=== PATIENT | male | born 1975 | race Caucasian/White ===

== ENCOUNTER 2021-12-16 16:58 | Inpatient (IN) ==
[2021-12-16] MEDS ORDERED: Acetaminophen 325 MG TABLET PO PRN (17:43)
[2021-12-16] MEDS ORDERED: Ondansetron 4 MG/2 ML VIAL IVP PRN (17:43)
[2021-12-16] MEDS ORDERED: Naloxone 0.4 MG/ML INJ IVP PRN (17:43)
[2021-12-16] MEDS ORDERED: *HR* Heparin 5,000 UNIT/ML VIAL IVP PRN (17:51)
[2021-12-16] MEDS ORDERED: *HR* Heparin 5,000 UNIT/ML VIAL IVP ONE (17:51)
[2021-12-16] MEDS ORDERED: Vancomycin 1,500 MG/265 ML IV.SOLN IVPB ONE (18:00)
[2021-12-16] MEDS: *HR* HYDROcodone/Acet 5/325 mg TABLET PO PRN (18:20)
[2021-12-16] MEDS: Nicotine 14 MG PATCH.TD24 TD SCH (18:24)
[2021-12-16 18:28] LABS: Basophils # 0.1 K/mcL (0.0-0.2); Basophils % 0.5 %; Eosinophils # 0.2 K/mcL (0.0-0.6); Eosinophils % 1.6 %; Hematocrit 38.5 % (37.5-50.1); Hemoglobin 12.8 g/dL (12.9-16.9); Immature Granulocytes % 0.4 % (0-4); Lymphocytes % 15.8 %; Mean Corpuscular HGB Conc 33.2 g/dL (31.6-35.5); Mean Corpuscular Hemoglobin 29.6 pg (28.0-33.3); Mean Corpuscular Volume 89.1 fL (83.0-100.0); Mean Platelet Volume 9.2 fL (9.4-12.4); Monocytes % 7.5 %; Neutrophils # 9.5 K/mcL (1.6-8.9); Platelet Count 386 K/mcL (140-400); Red Blood Count 4.32 M/mcL (4.19-5.50); Red Cell Distribution Width 13.5 % (11.5-14.5); Segmented Neutrophils % 74.2 %; White Blood Count 12.8 K/mcL (4.3-11.1)
[2021-12-16 18:38] LABS: INR 1.4; Prothrombin Time 15.9 Seconds (9.4-12.1)
[2021-12-16 18:41] LABS: Activated Partial Thrombo Time 40.2 Seconds (26.0-36.0)
[2021-12-16 18:47] LABS: BUN/Creatinine Ratio 7 (6-26); Blood Urea Nitrogen 5 mg/dL (6-20); Calcium 9.2 mg/dL (8.6-10.3); Carbon Dioxide 28 mEq/L (23-29); Chloride 99 mEq/L (98-107); Glucose 97 mg/dL (70-105); Osmolality,Calculated 275 (280-300); Potassium 3.4 mEq/L (3.5-5.1); Sodium 134 mEq/L (136-145); eGFR For African Americans > 60 (> 60); eGFR For Non-African Americans > 60 (> 60)
[2021-12-16] MEDS: *HR* OxyCODONE Immed Rel 5 MG TABLET PO PRN (19:40)
[2021-12-16] MEDS: Heparin 25,000UNIT/250ML 1/2NS 25,000 UNIT/250 ML IV.SOLN IVC SCH (19:41)
[2021-12-16] MEDS ORDERED: *HR* HYDROmorphone (PF) 1 MG/ML SYRINGE IVP ONE (23:19)
[2021-12-16] MEDS ORDERED: 0.9 % Sodium Chloride 500 ML IVC ONE (23:37)
[2021-12-16] MEDS: Gabapentin 400 MG CAPSULE PO SCH (23:42)
[2021-12-17] MEDS: *HR* HYDROcodone/Acet 5/325 mg TABLET PO PRN ×5 (01:14→21:12)
[2021-12-17 02:06] LABS: Basophils # 0.1 K/mcL (0.0-0.2); Basophils % 0.6 %; Eosinophils # 0.2 K/mcL (0.0-0.6); Eosinophils % 2.1 %; Hematocrit 36.9 % (37.5-50.1); Hemoglobin 11.9 g/dL (12.9-16.9); Immature Granulocytes % 0.5 % (0-4); Lymphocytes % 26.6 %; Mean Corpuscular HGB Conc 32.2 g/dL (31.6-35.5); Mean Corpuscular Hemoglobin 29.2 pg (28.0-33.3); Mean Corpuscular Volume 90.4 fL (83.0-100.0); Mean Platelet Volume 9.3 fL (9.4-12.4); Monocytes % 8.9 %; Neutrophils # 6.8 K/mcL (1.6-8.9); Platelet Count 369 K/mcL (140-400); Red Blood Count 4.08 M/mcL (4.19-5.50); Red Cell Distribution Width 13.7 % (11.5-14.5); Segmented Neutrophils % 61.3 %; White Blood Count 11.1 K/mcL (4.3-11.1)
[2021-12-17 02:25] LABS: BUN/Creatinine Ratio 11 (6-26); Blood Urea Nitrogen 10 mg/dL (6-20); Calcium 8.4 mg/dL (8.6-10.3); Carbon Dioxide 27 mEq/L (23-29); Chloride 101 mEq/L (98-107); Chol/HDL Ratio 5.7 (0-4.9); Cholesterol 125 mg/dL (< 200); Glucose 99 mg/dL (70-105); HDL Cholesterol 22 mg/dL (40-59); LDL Cholesterol,Calculated 61 mg/dL (< 100); Magnesium 1.7 mg/dL (1.6-2.6); Osmolality,Calculated 283 (280-300); Potassium 3.2 mEq/L (3.5-5.1); Sodium 137 mEq/L (136-145); Triglycerides 210 mg/dL (< 150); eGFR For African Americans > 60 (> 60); eGFR For Non-African Americans > 60 (> 60)
[2021-12-17] MEDS: *HR* OxyCODONE Immed Rel 5 MG TABLET PO PRN (03:35)
[2021-12-17] MEDS: *HR* Heparin 5,000 UNIT/ML VIAL IVP PRN ×2 (03:36→10:19)
[2021-12-17] MEDS: Vancomycin 1,500 MG/265 ML IV.SOLN IVPB SCH ×2 (05:28→19:33)
[2021-12-17] MEDS: Aspirin 81 MG TAB.CHEW PO SCH (08:12)
[2021-12-17] MEDS: Nicotine 14 MG PATCH.TD24 TD SCH (08:12)
[2021-12-17] MEDS: Gabapentin 400 MG CAPSULE PO SCH ×3 (08:12→19:32)
[2021-12-17] MEDS: Heparin 25,000UNIT/250ML 1/2NS 25,000 UNIT/250 ML IV.SOLN IVC SCH (14:03)
[2021-12-17] MEDS: Piperacillin/Tazobactam 3.375 GM in 0.9 % Sodium Chloride Mini Bag 100 ML IVPB SCH (19:34)
[2021-12-18] MEDS: Piperacillin/Tazobactam 3.375 GM in 0.9 % Sodium Chloride Mini Bag 100 ML IVPB SCH ×3 (01:14→16:50)
[2021-12-18] MEDS: *HR* HYDROcodone/Acet 5/325 mg TABLET PO PRN ×3 (01:14→08:51)
[2021-12-18] MEDS: Vancomycin 1,500 MG/265 ML IV.SOLN IVPB SCH (05:39)
[2021-12-18] MEDS: Heparin 25,000UNIT/250ML 1/2NS 25,000 UNIT/250 ML IV.SOLN IVC SCH (06:31)
[2021-12-18 07:04] LABS: Basophils # 0.1 K/mcL (0.0-0.2); Basophils % 0.7 %; Eosinophils # 0.2 K/mcL (0.0-0.6); Eosinophils % 1.9 %; Hematocrit 36.9 % (37.5-50.1); Hemoglobin 11.8 g/dL (12.9-16.9); Immature Granulocytes % 0.5 % (0-4); Lymphocytes # 2.2 K/mcL (0.6-4.6); Lymphocytes % 21.7 %; Mean Corpuscular Volume 90.7 fL (83.0-100.0); Mean Platelet Volume 9.5 fL (9.4-12.4); Monocytes # 0.9 K/mcL (0.0-1.3); Monocytes % 8.7 %; Neutrophils # 6.8 K/mcL (1.6-8.9); Platelet Count 357 K/mcL (140-400); Red Blood Count 4.07 M/mcL (4.19-5.50); Red Cell Distribution Width 13.6 % (11.5-14.5); Segmented Neutrophils % 66.5 %; White Blood Count 10.3 K/mcL (4.3-11.1)
[2021-12-18 07:59] LABS: BUN/Creatinine Ratio 8 (6-26); Blood Urea Nitrogen 6 mg/dL (6-20); Carbon Dioxide 25 mEq/L (23-29); Chloride 103 mEq/L (98-107); Glucose 99 mg/dL (70-105); Magnesium 1.8 mg/dL (1.6-2.6); Osmolality,Calculated 284 (280-300); Phosphorous 2.9 mg/dL (2.7-4.5); Potassium 3.6 mEq/L (3.5-5.1); Sodium 138 mEq/L (136-145); eGFR For African Americans > 60 (> 60); eGFR For Non-African Americans > 60 (> 60)
[2021-12-18] MEDS: Gabapentin 400 MG CAPSULE PO SCH ×2 (08:51→22:05)
[2021-12-18] MEDS: Aspirin 81 MG TAB.CHEW PO SCH (08:51)
[2021-12-18] MEDS: lisinopriL 5 MG TABLET PO SCH (08:52)
[2021-12-18] MEDS: Nicotine 14 MG PATCH.TD24 TD SCH (08:53)
[2021-12-18] MEDS ORDERED: *HR* OxyCODONE Immed Rel 5 MG TABLET PO PRN (10:29)
[2021-12-18] MEDS ORDERED: haloperidoL 5 MG TABLET PO ONE (11:23)
[2021-12-18] MEDS: Vancomycin 1,250 MG/262.5 ML IV.SOLN IVPB SCH ×2 (13:14→22:19)
[2021-12-18] MEDS: *HR* OxyCODONE Immed Rel 5 MG TABLET PO PRN ×2 (13:15→18:22)
[2021-12-19] MEDS: Piperacillin/Tazobactam 3.375 GM in 0.9 % Sodium Chloride Mini Bag 100 ML IVPB SCH ×3 (03:11→17:42)
[2021-12-19] MEDS: Vancomycin 1,250 MG/262.5 ML IV.SOLN IVPB SCH ×2 (05:59→16:49)
[2021-12-19] MEDS: *HR* OxyCODONE Immed Rel 5 MG TABLET PO PRN ×2 (06:08→17:34)
[2021-12-19] MEDS: lisinopriL 5 MG TABLET PO SCH (09:13)
[2021-12-19] MEDS: Aspirin 81 MG TAB.CHEW PO SCH (09:13)
[2021-12-19] MEDS: Gabapentin 400 MG CAPSULE PO SCH ×2 (09:14→21:01)
[2021-12-19] MEDS: Nicotine 14 MG PATCH.TD24 TD SCH (09:18)
[2021-12-19] MEDS ORDERED: *HR* Propofol 200 MG/20 ML VIAL IVP ONE (10:13)
[2021-12-19] MEDS ORDERED: *HR* Midazolam HCl 2 MG/2 ML VIAL ONE (10:13)
[2021-12-19] MEDS ORDERED: *HR* FentaNYL (PF) 100 MCG/2 ML VIAL ONE (10:13)
[2021-12-19] MEDS ORDERED: Lidocaine -MPF 2% 5 ML VIAL ONE ×2 (10:16→14:57)
[2021-12-19] MEDS ORDERED: *HR* Rocuronium Bromide 50 MG/5 ML VIAL ONE ×2 (10:16→12:57)
[2021-12-19] MEDS ORDERED: Ondansetron 4 MG/2 ML VIAL ONE (10:16)
[2021-12-19] MEDS ORDERED: Lidocaine HCL 4 ML Topical Solution (Laryng-O-Jet Kit Sterile Pak) TP ONE (10:19)
[2021-12-19] MEDS ORDERED: Acetaminophen IV 1,000 MG/100 ML BAG IVPB ONE ×2 (11:12→11:15)
[2021-12-19] MEDS ORDERED: Famotidine 20 MG/2 ML VIAL IVP ONE ×2 (11:12→22:35)
[2021-12-19] MEDS ORDERED: Gabapentin 300 MG CAPSULE PO ONE ×2 (11:12→22:35)
[2021-12-19] MEDS ORDERED: ceFAZolin 1,000 MG, Sodium Chloride IRRigation 1,000 ML IR ONE (11:30)
[2021-12-19] MEDS ORDERED: Famotidine 20 MG/2 ML VIAL ONE (11:45)
[2021-12-19] MEDS ORDERED: *HR* HYDROMORPHONE 2 MG/ML VIAL ONE (12:33)
[2021-12-19] MEDS ORDERED: Ketamine HCL *QUVA* 50mg (1mL) SYRINGE ONE (12:33)
[2021-12-19] MEDS ORDERED: EPHEDrine 50 MG/ML VIAL ONE (13:35)
[2021-12-19] MEDS ORDERED: Ondansetron 4 MG/2 ML VIAL IVP PRN ×2 (14:31→22:35)
[2021-12-19] MEDS ORDERED: Ropivacaine/PF 0.5% 30 ML VIAL ONE (14:35)
[2021-12-19] MEDS ORDERED: Dexmedetomidine HCl 400 MCG/100 ML MLS IVC ONE (14:35)
[2021-12-19] MEDS ORDERED: Sugammadex Sodium 200 MG/2 ML VIAL IV ONE (14:42)
[2021-12-19] MEDS: *HR* HYDROmorphone PF 0.5 MG/0.5 ML SYRINGE IVP PRN ×2 (15:51→15:56)
[2021-12-19] MEDS ORDERED: *HR* Labetalol 100 MG/20 ML MDV ONE (16:07)
[2021-12-19] MEDS: *HR* Labetalol 20 MG/4 ML SYRINGE IVP PRN ×2 (16:08→16:13)
[2021-12-19] MEDS ORDERED: Vancomycin 1,250 MG/262.5 ML IV.SOLN IVPB SCH (19:00)
[2021-12-19] MEDS ORDERED: Heparin 25,000UNIT/250ML 1/2NS 25,000 UNIT/250 ML IV.SOLN IVC SCH (22:35)
[2021-12-19] MEDS ORDERED: *HR* Heparin 5,000 UNIT/ML VIAL IVP PRN ×2 (22:35)
[2021-12-19] MEDS ORDERED: Naloxone 0.4 MG/ML INJ IVP PRN (22:35)
[2021-12-20] MEDS: *HR* OxyCODONE Immed Rel 5 MG TABLET PO PRN ×4 (01:33→21:27)
[2021-12-20] MEDS: Piperacillin/Tazobactam 3.375 GM in 0.9 % Sodium Chloride Mini Bag 100 ML IVPB SCH ×3 (01:47→17:28)
[2021-12-20] MEDS: Acetaminophen 325 MG TABLET PO PRN ×2 (05:51→12:57)
[2021-12-20 07:15] LABS: Basophils % 0.1 %; Hematocrit 34.5 % (37.5-50.1); Hemoglobin 11.3 g/dL (12.9-16.9); Immature Granulocytes % 0.6 % (0-4); Lymphocytes # 0.9 K/mcL (0.6-4.6); Lymphocytes % 4.5 %; Mean Corpuscular HGB Conc 32.8 g/dL (31.6-35.5); Mean Corpuscular Hemoglobin 29.4 pg (28.0-33.3); Mean Corpuscular Volume 89.8 fL (83.0-100.0); Mean Platelet Volume 9.6 fL (9.4-12.4); Neutrophils # 18.3 K/mcL (1.6-8.9); Platelet Count 360 K/mcL (140-400); Red Blood Count 3.84 M/mcL (4.19-5.50); Red Cell Distribution Width 13.6 % (11.5-14.5); Segmented Neutrophils % 89.8 %
[2021-12-20 07:18] LABS: White Blood Count 20.4 K/mcL (4.3-11.1)
[2021-12-20 07:36] LABS: BUN/Creatinine Ratio 15 (6-26); Blood Urea Nitrogen 9 mg/dL (6-20); Calcium 7.7 mg/dL (8.6-10.3); Carbon Dioxide 25 mEq/L (23-29); Chloride 103 mEq/L (98-107); Glucose 127 mg/dL (70-105); Osmolality,Calculated 282 (280-300); Potassium 4.2 mEq/L (3.5-5.1); Sodium 136 mEq/L (136-145); eGFR For African Americans > 60 (> 60); eGFR For Non-African Americans > 60 (> 60)
[2021-12-20] MEDS: Aspirin 81 MG TAB.CHEW PO SCH (09:04)
[2021-12-20] MEDS: Gabapentin 400 MG CAPSULE PO SCH ×2 (09:05→19:51)
[2021-12-20] MEDS: lisinopriL 5 MG TABLET PO SCH (09:06)
[2021-12-20] MEDS: Nicotine 14 MG PATCH.TD24 TD SCH (09:06)
[2021-12-20] MEDS: Apixaban 5 MG TABLET PO SCH ×2 (15:51→19:51)
[2021-12-21] MEDS: Piperacillin/Tazobactam 3.375 GM in 0.9 % Sodium Chloride Mini Bag 100 ML IVPB SCH ×3 (01:06→17:11)
[2021-12-21] MEDS: *HR* OxyCODONE Immed Rel 5 MG TABLET PO PRN ×5 (01:42→23:19)
[2021-12-21] MEDS: Acetaminophen 325 MG TABLET PO PRN (06:48)
[2021-12-21] MEDS: Nicotine 14 MG PATCH.TD24 TD SCH (07:41)
[2021-12-21] MEDS: Apixaban 5 MG TABLET PO SCH ×2 (07:42→20:41)
[2021-12-21] MEDS: lisinopriL 5 MG TABLET PO SCH (07:42)
[2021-12-21] MEDS: Gabapentin 400 MG CAPSULE PO SCH ×2 (07:42→20:41)
[2021-12-21] MEDS: Aspirin 81 MG TAB.CHEW PO SCH (07:42)
[2021-12-21] MEDS: CarBAMazepine 100 MG TABLET PO SCH ×3 (10:12→23:19)
[2021-12-21] MEDS ORDERED: Ketorolac 30 MG/ML VIAL IVP ONE (15:51)
[2021-12-22] MEDS: *HR* OxyCODONE Immed Rel 5 MG TABLET PO PRN ×5 (02:08→20:22)
[2021-12-22] MEDS: Piperacillin/Tazobactam 3.375 GM in 0.9 % Sodium Chloride Mini Bag 100 ML IVPB SCH ×3 (02:08→16:34)
[2021-12-22 06:22] LABS: Basophils # 0.1 K/mcL (0.0-0.2); Basophils % 0.7 %; Eosinophils # 0.2 K/mcL (0.0-0.6); Eosinophils % 2.1 %; Hematocrit 34.6 % (37.5-50.1); Immature Granulocytes % 0.6 % (0-4); Lymphocytes # 2.2 K/mcL (0.6-4.6); Lymphocytes % 25.3 %; Mean Corpuscular HGB Conc 31.8 g/dL (31.6-35.5); Mean Corpuscular Hemoglobin 29.1 pg (28.0-33.3); Mean Corpuscular Volume 91.5 fL (83.0-100.0); Mean Platelet Volume 9.4 fL (9.4-12.4); Monocytes # 0.9 K/mcL (0.0-1.3); Monocytes % 10.4 %; Neutrophils # 5.2 K/mcL (1.6-8.9); Platelet Count 338 K/mcL (140-400); Red Blood Count 3.78 M/mcL (4.19-5.50); Red Cell Distribution Width 13.8 % (11.5-14.5); Segmented Neutrophils % 60.9 %
[2021-12-22 06:26] LABS: White Blood Count 8.6 K/mcL (4.3-11.1)
[2021-12-22 06:45] LABS: BUN/Creatinine Ratio 11 (6-26); Blood Urea Nitrogen 8 mg/dL (6-20); Calcium 8.3 mg/dL (8.6-10.3); Carbon Dioxide 29 mEq/L (23-29); Chloride 105 mEq/L (98-107); Glucose 99 mg/dL (70-105); Magnesium 1.9 mg/dL (1.6-2.6); Osmolality,Calculated 288 (280-300); Potassium 3.5 mEq/L (3.5-5.1); Sodium 140 mEq/L (136-145); eGFR For African Americans > 60 (> 60); eGFR For Non-African Americans > 60 (> 60)
[2021-12-22] MEDS: Gabapentin 400 MG CAPSULE PO SCH ×2 (08:31→20:22)
[2021-12-22] MEDS: Apixaban 5 MG TABLET PO SCH ×2 (08:32→20:22)
[2021-12-22] MEDS: Aspirin 81 MG TAB.CHEW PO SCH (08:32)
[2021-12-22] MEDS: lisinopriL 5 MG TABLET PO SCH (08:33)
[2021-12-22] MEDS: CarBAMazepine 100 MG TABLET PO SCH ×2 (08:33→16:34)
[2021-12-22] MEDS: Nicotine 14 MG PATCH.TD24 TD SCH (08:34)
[2021-12-23] MEDS: Piperacillin/Tazobactam 3.375 GM in 0.9 % Sodium Chloride Mini Bag 100 ML IVPB SCH ×3 (00:53→16:43)
[2021-12-23] MEDS: CarBAMazepine 100 MG TABLET PO SCH ×3 (00:54→15:55)
[2021-12-23] MEDS: *HR* OxyCODONE Immed Rel 5 MG TABLET PO PRN ×6 (00:54→20:08)
[2021-12-23 05:56] LABS: Basophils # 0.1 K/mcL (0.0-0.2); Basophils % 0.9 %; Eosinophils # 0.3 K/mcL (0.0-0.6); Eosinophils % 3.5 %; Hematocrit 36.6 % (37.5-50.1); Hemoglobin 11.5 g/dL (12.9-16.9); Immature Granulocytes % 0.8 % (0-4); Lymphocytes # 2.4 K/mcL (0.6-4.6); Lymphocytes % 30.7 %; Mean Corpuscular HGB Conc 31.4 g/dL (31.6-35.5); Mean Corpuscular Volume 92.2 fL (83.0-100.0); Mean Platelet Volume 9.3 fL (9.4-12.4); Monocytes # 0.7 K/mcL (0.0-1.3); Monocytes % 9.4 %; Neutrophils # 4.2 K/mcL (1.6-8.9); Platelet Count 358 K/mcL (140-400); Red Blood Count 3.97 M/mcL (4.19-5.50); Red Cell Distribution Width 13.8 % (11.5-14.5); Segmented Neutrophils % 54.7 %; White Blood Count 7.8 K/mcL (4.3-11.1)
[2021-12-23 06:17] LABS: BUN/Creatinine Ratio 14 (6-26); Blood Urea Nitrogen 11 mg/dL (6-20); Calcium 8.2 mg/dL (8.6-10.3); Carbon Dioxide 29 mEq/L (23-29); Chloride 106 mEq/L (98-107); Glucose 85 mg/dL (70-105); Osmolality,Calculated 291 (280-300); Potassium 3.9 mEq/L (3.5-5.1); Sodium 141 mEq/L (136-145); eGFR For African Americans > 60 (> 60); eGFR For Non-African Americans > 60 (> 60)
[2021-12-23] MEDS: Apixaban 5 MG TABLET PO SCH ×2 (09:09→20:08)
[2021-12-23] MEDS: lisinopriL 5 MG TABLET PO SCH (09:10)
[2021-12-23] MEDS: Gabapentin 400 MG CAPSULE PO SCH ×2 (09:10→20:08)
[2021-12-23] MEDS: Aspirin 81 MG TAB.CHEW PO SCH (09:11)
[2021-12-23] MEDS: Nicotine 14 MG PATCH.TD24 TD SCH (09:11)
[2021-12-24] MEDS: *HR* OxyCODONE Immed Rel 5 MG TABLET PO PRN ×6 (00:13→22:07)
[2021-12-24] MEDS: CarBAMazepine 100 MG TABLET PO SCH ×4 (00:13→23:04)
[2021-12-24] MEDS: Piperacillin/Tazobactam 3.375 GM in 0.9 % Sodium Chloride Mini Bag 100 ML IVPB SCH ×3 (03:31→18:00)
[2021-12-24 05:35] LABS: Basophils # 0.1 K/mcL (0.0-0.2); Basophils % 1.1 %; Eosinophils # 0.3 K/mcL (0.0-0.6); Eosinophils % 4.1 %; Hematocrit 36.8 % (37.5-50.1); Hemoglobin 11.4 g/dL (12.9-16.9); Lymphocytes # 2.5 K/mcL (0.6-4.6); Lymphocytes % 30.5 %; Mean Corpuscular Volume 93.6 fL (83.0-100.0); Mean Platelet Volume 9.1 fL (9.4-12.4); Monocytes # 0.7 K/mcL (0.0-1.3); Monocytes % 7.8 %; Neutrophils # 4.6 K/mcL (1.6-8.9); Platelet Count 372 K/mcL (140-400); Red Blood Count 3.93 M/mcL (4.19-5.50); Red Cell Distribution Width 13.8 % (11.5-14.5); Segmented Neutrophils % 55.5 %; White Blood Count 8.3 K/mcL (4.3-11.1)
[2021-12-24 05:52] LABS: BUN/Creatinine Ratio 13 (6-26); Blood Urea Nitrogen 11 mg/dL (6-20); Calcium 8.4 mg/dL (8.6-10.3); Carbon Dioxide 30 mEq/L (23-29); Chloride 105 mEq/L (98-107); Glucose 110 mg/dL (70-105); Osmolality,Calculated 290 (280-300); Potassium 4.1 mEq/L (3.5-5.1); Sodium 140 mEq/L (136-145); eGFR For African Americans > 60 (> 60); eGFR For Non-African Americans > 60 (> 60)
[2021-12-24] MEDS: Nicotine 14 MG PATCH.TD24 TD SCH (09:20)
[2021-12-24] MEDS: Apixaban 5 MG TABLET PO SCH ×2 (09:20→19:49)
[2021-12-24] MEDS: lisinopriL 5 MG TABLET PO SCH (09:21)
[2021-12-24] MEDS: Gabapentin 400 MG CAPSULE PO SCH ×2 (09:21→19:50)
[2021-12-24] MEDS: Aspirin 81 MG TAB.CHEW PO SCH (09:22)
[2021-12-24] MEDS: Sennosides/Docusate Sodium TABLET PO SCH ×2 (16:24→19:50)
[2021-12-24] MEDS: polyethylene glycoL 3350 17 GM POWD.PACK PO SCH (16:26)
[2021-12-25] MEDS: Piperacillin/Tazobactam 3.375 GM in 0.9 % Sodium Chloride Mini Bag 100 ML IVPB SCH ×2 (01:19→10:07)
[2021-12-25] MEDS: *HR* OxyCODONE Immed Rel 5 MG TABLET PO PRN ×5 (04:39→23:16)
[2021-12-25 05:24] LABS: Basophils # 0.1 K/mcL (0.0-0.2); Eosinophils # 0.4 K/mcL (0.0-0.6); Eosinophils % 3.7 %; Hematocrit 38.1 % (37.5-50.1); Hemoglobin 11.8 g/dL (12.9-16.9); Immature Granulocytes % 1.3 % (0-4); Lymphocytes # 2.5 K/mcL (0.6-4.6); Lymphocytes % 25.6 %; Mean Corpuscular Hemoglobin 28.6 pg (28.0-33.3); Mean Corpuscular Volume 92.5 fL (83.0-100.0); Mean Platelet Volume 9.2 fL (9.4-12.4); Monocytes # 0.7 K/mcL (0.0-1.3); Monocytes % 6.9 %; Neutrophils # 6.1 K/mcL (1.6-8.9); Platelet Count 393 K/mcL (140-400); Red Blood Count 4.12 M/mcL (4.19-5.50); Segmented Neutrophils % 61.5 %; White Blood Count 9.9 K/mcL (4.3-11.1)
[2021-12-25 05:43] LABS: BUN/Creatinine Ratio 14 (6-26); Blood Urea Nitrogen 11 mg/dL (6-20); Calcium 8.4 mg/dL (8.6-10.3); Carbon Dioxide 27 mEq/L (23-29); Chloride 104 mEq/L (98-107); Glucose 136 mg/dL (70-105); Magnesium 1.9 mg/dL (1.6-2.6); Osmolality,Calculated 287 (280-300); Potassium 3.9 mEq/L (3.5-5.1); Sodium 138 mEq/L (136-145); eGFR For African Americans > 60 (> 60); eGFR For Non-African Americans > 60 (> 60)
[2021-12-25] MEDS: Aspirin 81 MG TAB.CHEW PO SCH (08:26)
[2021-12-25] MEDS: lisinopriL 5 MG TABLET PO SCH (08:26)
[2021-12-25] MEDS: Apixaban 5 MG TABLET PO SCH ×2 (08:26→20:12)
[2021-12-25] MEDS: Sennosides/Docusate Sodium TABLET PO SCH ×2 (08:26→20:11)
[2021-12-25] MEDS: CarBAMazepine 100 MG TABLET PO SCH ×3 (08:28→23:16)
[2021-12-25] MEDS: Gabapentin 400 MG CAPSULE PO SCH ×2 (08:28→20:11)
[2021-12-25] MEDS: polyethylene glycoL 3350 17 GM POWD.PACK PO SCH ×2 (08:28→08:36)
[2021-12-25] MEDS: Nicotine 14 MG PATCH.TD24 TD SCH (08:31)
[2021-12-26] MEDS: *HR* OxyCODONE Immed Rel 5 MG TABLET PO PRN ×5 (03:29→21:03)
[2021-12-26] MEDS: Nicotine 14 MG PATCH.TD24 TD SCH (08:13)
[2021-12-26] MEDS: polyethylene glycoL 3350 17 GM POWD.PACK PO SCH (08:14)
[2021-12-26] MEDS: Sennosides/Docusate Sodium TABLET PO SCH ×2 (08:14→21:04)
[2021-12-26] MEDS: Apixaban 5 MG TABLET PO SCH ×2 (08:15→21:04)
[2021-12-26] MEDS: Aspirin 81 MG TAB.CHEW PO SCH (08:16)
[2021-12-26] MEDS: lisinopriL 5 MG TABLET PO SCH (08:16)
[2021-12-26] MEDS: CarBAMazepine 100 MG TABLET PO SCH ×2 (08:17→16:59)
[2021-12-26] MEDS: Gabapentin 400 MG CAPSULE PO SCH ×2 (08:17→21:05)
[2021-12-27] MEDS: CarBAMazepine 100 MG TABLET PO SCH ×3 (00:36→16:06)
[2021-12-27] MEDS: *HR* OxyCODONE Immed Rel 5 MG TABLET PO PRN ×5 (01:01→20:30)
[2021-12-27] MEDS: Apixaban 5 MG TABLET PO SCH ×2 (09:02→20:26)
[2021-12-27] MEDS: Aspirin 81 MG TAB.CHEW PO SCH (09:02)
[2021-12-27] MEDS: lisinopriL 5 MG TABLET PO SCH (09:02)
[2021-12-27] MEDS: Gabapentin 400 MG CAPSULE PO SCH ×2 (09:04→20:25)
[2021-12-27] MEDS: Nicotine 14 MG PATCH.TD24 TD SCH (09:04)
[2021-12-27] MEDS: polyethylene glycoL 3350 17 GM POWD.PACK PO SCH (09:12)
[2021-12-28] MEDS: *HR* OxyCODONE Immed Rel 5 MG TABLET PO PRN ×4 (00:33→14:21)
[2021-12-28] MEDS: CarBAMazepine 100 MG TABLET PO SCH ×2 (00:33→10:26)
[2021-12-28 06:34] VITALS: TEMP 98.7
[2021-12-28] MEDS: Aspirin 81 MG TAB.CHEW PO SCH (10:06)
[2021-12-28] MEDS: lisinopriL 5 MG TABLET PO SCH (10:07)
[2021-12-28] MEDS: polyethylene glycoL 3350 17 GM POWD.PACK PO SCH (10:07)
[2021-12-28] MEDS: Nicotine 14 MG PATCH.TD24 TD SCH (10:07)
[2021-12-28] MEDS: Gabapentin 400 MG CAPSULE PO SCH (10:07)
[2021-12-28] MEDS: Apixaban 5 MG TABLET PO SCH (10:07)
[2021-12-28 11:29] VITALS: BP 132/91; PULSE 86; O2SAT 95
[2021-12-28 15:11] LABS: Adenovirus Not Detected (Not Detect); Bordetella Pertussis Not Detected (Not Detect); Chlamydophila pneumoniae Not Detected (Not Detect); Coronavirus 229E Not Detected (Not Detect); Coronavirus HKU1 Not Detected (Not Detect); Coronavirus NL63 Not Detected (Not Detect); Coronavirus OC43 Not Detected (Not Detect); Human Metapneumovirus Not Detected (Not Detect); Human Rhinovirus/Enterovirus Not Detected (Not Detect); Influenza A Subtype 2009 H1 Not Detected (Not Detect); Influenza B Not Detected (Not Detect); Mycoplasma pneumoniae Not Detected (Not Detect); Parainfluenza Virus 1 Not Detected (Not Detect); Parainfluenza Virus 2 Not Detected (Not Detect); Parainfluenza Virus 3 Not Detected (Not Detect); Parainfluenza Virus 4 Not Detected (Not Detect); Respiratory Syncytial Virus Not Detected (Not Detect); SARS-CoV-2 Not Detected (Not Detect)
== END 2021-12-28 15:40 | disposition other institution (70) | DRG 239 ==
LOC: 3NENU → SUATTDRO 17:05 → 3NENU 12-18 22:18
PROVIDERS: ADMIT Internal Medicine; ATTEND Hospitalist